=== PATIENT | male | born 1950 | race Asian ===

== ENCOUNTER 2022-04-26 01:08 | Emergency (ER) | payer BC, MEDICAID ==
[~2022-04-26] VITALS: Ht 172.7 cm; Wt 86.2 kg
[2022-04-26 01:20] VITALS: BP_SYST 138
[2022-04-26 04:23] LABS: BASOPHILS # (AUTO) 0.1 K/uL (0.0-0.2); BASOPHILS % (AUTO) 0.6 % (0.0-2.0); EOSINOPHILS # (AUTO) 0.1 K/uL (0.0-0.4); EOSINOPHILS % (AUTO) 1.3 % (0.0-4.0); HEMATOCRIT 43.2 % (36-54); HEMOGLOBIN 14.4 g/dL (14.0-18.0); LYMPHOCYTES # (AUTO) 1.7 K/uL (1.0-5.5); LYMPHOCYTES % (AUTO) 19.4 % (20.5-51.5); MEAN CORPUSCULAR HEMOGLOBIN 32 pg (27-31); MEAN CORPUSCULAR HGB CONC 33 % (32-36); MEAN CORPUSCULAR VOLUME 97 fL (79.0-98.0); MONOCYTES # (AUTO) 0.9 K/uL (0.0-1.0); MONOCYTES % (AUTO) 9.8 % (1.7-9.3); NEUTROPHILS # (AUTO) 6.2 K/uL (1.8-7.7); NEUTROPHILS % (AUTO) 68.9 % (40.0-70.0); PLATELET COUNT (AUTO) 202 K/uL (130-430); RED BLOOD CELL COUNT(AUTO) 4.44 MIL/uL (4.2-6.2); RED CELL DISTRIBUTION WIDTH 13.9 % (9.0-15.0)
[2022-04-26 04:40] LABS: CALCIUM 9.4 mg/dL (8.4-11.0); CREATININE 1.13 mg/dL (0.55-1.30); POTASSIUM 4.3 mmol/L (3.5-5.1)
[2022-04-26 04:45] LABS: ALBUMIN 3.4 g/dL (3.4-4.8); TOTAL BILIRUBIN 1.2 mg/dL (0.0-1.0); URIC ACID 10.3 mg/dL (2.4-7.0)
[2022-04-26] MEDS ORDERED: NAPROXEN 250 MG TABLET PO ONE ×2 (05:15)
[2022-04-26] MEDS ORDERED: IBUPROFEN 400 MG TABLET PO ONE (05:30)
[2022-04-26] MEDS ORDERED: NAPR-686 PO (05:52)
[2022-04-26 07:02] VITALS: BP_SYST 159
== END 2022-04-26 07:02 | disposition home or self-care (01) ==
LOC: SED 01:08
DX: M10.9 Gout, unspecified (principal); M25.562 Pain in left knee; M25.571 Pain in right ankle and joints of right foot; R03.0 Elevated blood-pressure reading, without diagnosis of hypertension; Z79.899 Other long term (current) drug therapy
CPT/HCPCS: 36415; 73564; 80053; 84550; 85025; 99284